=== PATIENT | female | born 1985 | race Caucasian/White ===

== ENCOUNTER 2018-05-20 17:26 | Inpatient (IN) | payer BC ==
[~2018-05-20] VITALS: Ht 165.1 cm; Wt 68.0 kg
--- NOTE | 2018-05-20 17:45 | NUR ---
PT TO FLOOR DIRECT ADMIT FOR DR AWAD. PT AMBULATED TO ROOM ON OWN. VS STABLE. CHANGED INTO GOWN. INTO BED. JULIÁN YAO, ATTATCHED TO SCDS. TONY IN ROOM TO ADMIT PT.
--- NOTE | 2018-05-20 20:09 | NUR ---
RECEIVED REPORT FROM DAY SHIFT RN. PATIENT RATES PAIN AT A 6/10. PATIENT GIVEN PRN TORADOL GIVEN PER ORDER. NO FURTHER NEEDS NOTED. CALL LIGHT IN REACH.
--- NOTE | 2018-05-20 21:04 | NUR ---
DR AWAD ORDERED A HEPATOBILARY W/CCK SCAN TO BE DONE IN THE AM. CONTACTED NUCLEAR MEDICINE, HE IS AWARE THE SCAN NEEDS TO BE DONE "FIRST THING IN THE AM". HAS A PLAN TO GET HER IN BEFORE 799. ADVISES NPO AT LEAST 6 HOURS PRIOR, WHICH PT IS, WELL AVOID MORPHINE AT LEAST 6 HOURS PRIOR. IS AWARE THAT PT CAN HAVE TORADOL FOR PAIN, AND STATES THAT IS ACCEPTABLE.
--- NOTE | 2018-05-20 21:50 | NUR ---
PATIENT ASSESMENT COMPLETED. PATIENT RATES PAIN AT A 4/10. PATIENT DENIES THE NEED FOR PAIN MEDICATION. PATIENT DENIES ANY NAUSEA. PATIENTS IS AT THE BEDSIDE. ALL QUESTIONS ANSWERED. NO FURTHER NEEDS NOTED. CALL LIGHT IN REACH.
--- NOTE | 2018-05-20 23:33 | NUR ---
PATIENT IS RESTING IN BED AND DENIES ANY NEEDS. NO NAUSE NOTED. PATIENT STATES PAIN IS TOLERABLE AT A 4/10. CALL LIGHT IN REACH.
--- NOTE | 2018-05-21 00:05 | NUR ---
PATIENT IS RESTING IN BED WITH EYES CLOSED, RR 18. PATIENT IS NOW NPO. CALL LIGHT IN REACH.
--- NOTE | 2018-05-21 02:41 | NUR ---
0200 MEDICATIONS GIVEN PER ORDER. PATIENT RATES PAIN AT A 2/10. PATIENT DENIES THE NEED FOR PAIN MEDICATION AT THIS TIME. PATIENT DENIES ANY NAUSEA. DOT ETCHER APPRENTICE IN ROOM AND TAKING VITALS. NO NEEDS NOTED. CALL LIGHT IN REACH.
--- NOTE | 2018-05-21 04:58 | NUR ---
PATIENTS IV WAS BEEPING. PATIENT DENIES ANY PAIN OR NAUSEA AT THIS TIME. IV INFUSING. PATIENTS CALL LIGHT IS WITHIN REACH.
--- NOTE | 2018-05-21 05:08 | NUR ---
PATIENT RESTED WELL THROUGHOUT THE SHIFT. PATIENT IS NPO AT THIS TIME. PATIENT IS INDEPENDENT IN THE ROOM. PATIENT RECEIVED X1 PRN TORADOL FOR ABD PAIN. PATIENT DENIED NAUSEA. PATIENT HAS SCDS IN PLACE.
--- NOTE | 2018-05-21 06:33 | NUR ---
PATIENT GIVEN PRN PAIN MEDICATION PER ORDER FOR 4/10 RUQ PAIN. PATIENT DENIES ANY NAUSEA. PATIENT IS UP AMBULATIING IN THE ROOM. NO FURTHER NEEDS NOTED.
--- NOTE | 2018-05-21 07:20 | NUR ---
PT SL AND TRANSPORTED TO IMAGING FOR HIDA SCAN.
--- NOTE | 2018-05-21 07:41 | NUR ---
PATIENT OFF FLOOR AT THIS TIME FOR PROCEDURE. ROOM CLEANED AND LINENS CHANGED AND READJUSTED NEEDED.
--- NOTE | 2018-05-21 09:21 | NUR ---
PATIENT BACK ON FLOOR. PATIENT WALKING INDEPENDENTLY IN ROOM. PATIENT REQUESTING WATER, LEMON GLYCERIN SWABS OFFERED TO PATIENT. WARM BLANKETS PROVIDED FOR FAMILY AND PATIENT. CALL LIGHT IN REACH. NO OTHER NEEDS AT THIS TIME.
--- NOTE | 2018-05-21 09:30 | NUR ---
PT RETURNED FROM IMAGING. IV RESTARTED. PT REPORTS MILD EPIGASTRIC PAIN BUT DENIES NEED FOR PAIN MEDICATION AT THIS TIME. DENIES NAUSEA OR OTHER CONCERNS. AT BEDSIDE. CALL LIGHT WITHIN REACH.
--- NOTE | 2018-05-21 09:37 | HP ---
[facility] [address] [place], [place] [address] Signed ADMISSION DATE: 05/20/2018 REASON FOR ADMISSION: Severe epigastric pain, dehydration. HISTORY OF PRESENT ILLNESS: This 32-year-old white woman has had several days of increasing epigastric pain boring through into the back. This pain has been severe and unrelenting. She is unable to eat. The pain is so severe. She has been evaluated in the distant past for possible biliary disease including an ultrasound, uncertain if a CCK-HIDA test and has had evaluation elsewhere by racquet maker including upper endoscopy several years ago with no specific finding. There was a concern that she may have gastrointestinal bleeding in the past, though she has no such complaints now. She does not have dysphagia and has had no hematemesis or blood per rectum. She does have pain additionally in the subcostal area in the right side, but not as much as the epigastric area itself. She does feel some substernal pain which feels like "pressure." As mentioned previously, the pain is extremely disabling. The patient does have family history of biliary disease and rather significantly. Additionally, there is family history of Crohn's disease. SOCIAL HISTORY: She is . She is accompanied by her mother in the clinic visit today. 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 She has three children at home. Her primary physician is Dr. Delgado. REVIEW OF SYSTEMS: She denies any shortness of breath. She does not have dyspnea or any trouble breathing in any other way. She denies hemoptysis or hematemesis. She had no dysuria or hematuria. Denies urinary frequency. Has no low back pain. PHYSICAL EXAMINATION: GENERAL: A pleasant, healthy-appearing white woman, who looks to be in moderate discomfort. Mucous membranes are slightly dry. Trachea is midline. CHEST: Clear. HEART: Regular without murmur. Electronically Signed By: VILLA AWAD MD 05/21/18 0937 PATIENT NAME: BRITTNEY CABRALES HISTORY AND PHYSICAL DATE OF : [birth year] REPORT #: [id number] PHYSICIAN: VILLA AWAD MD PCP: ELIZABETH DELGADO MD REPORT IS CONFIDENTIAL AND NOT TO BE RELEASED WITHOUT AUTHORIZATION [facility] [address] [place], [place] [address] Signed NECK: Shows no thyromegaly or cervical adenopathy. Trachea is midline. ABDOMEN: Shows a scaphoid abdomen without sign of distention. Palpation reveals no abnormality except in the epigastric area where there was marked tenderness without rebound. She has no palpable mass. EXTREMITIES: No clubbing, cyanosis, or edema. ASSESSMENT: Due to the patient's inability to eat, her clinical dehydration and her persisting epigastric pain. She is admitted for further evaluation and care and workup. An ultrasound of the gallbladder was ordered for this evening and on the possibility this may represent a biliary source. She has been nothing by mouth including lipid since approximately 11 today. She has concerned, she may have peptic disease in a certainly consideration. She has been on PPI medication in the past, which was helpful to some abdominal pain she had in the past, but she discontinued it when it seemed not to be of any real benefit. She has been started on Pepcid intravenously administered during this hospitalization. If the gallbladder ultrasound proves to be without sign of stone or pathologic findings, and we would recommend upper endoscopy be performed tomorrow morning. If that is entirely normal, then a CCK-HIDA test may be appropriate. The source of her problem is uncertain, but it has been unresponsive to Gaviscon, indeed has been made worse by it. The possibility of an esophageal spasm or reflux related esophageal spasm is also a consideration. Much less likely would be rare causes of epigastric pain including hepatic abnormality. She shows no evidence of hypotension or anything to suggest a perforated viscus or visceral artery aneurysm or anything of that . We discussed all this in detail. MD MADELEINE Narayan/JOANL /[id number] Copies: Electronically Signed By: VILLA AWAD MD 05/21/18 0937 PATIENT NAME: BRITTNEY CABRALES HISTORY AND PHYSICAL DATE OF : [birth year] REPORT #: [id number] PHYSICIAN: VILLA AWAD MD PCP: ELIZABETH DELGADO MD REPORT IS CONFIDENTIAL AND NOT TO BE RELEASED WITHOUT AUTHORIZATION [facility] [address] [place] [place] [address] Signed ~ Electronically Signed By: VILLA AWAD MD 05/21/18 0937 PATIENT NAME: BRITTNEY CABRALES HISTORY AND PHYSICAL DATE OF : [birth year] REPORT #: [id number] PHYSICIAN: VILLA AWAD MD PCP: ELIZABETH DELGADO MD REPORT IS CONFIDENTIAL AND NOT TO BE RELEASED WITHOUT AUTHORIZATION
--- NOTE | 2018-05-21 10:01 | NUR ---
PATIENT SITTING ON EDGE OF BED, FAMILY AND VISITORS IN ROOM. PATIENT CALL LIGHT IN REACH. NO OTHER NEEDS AT THIS TIME.
--- NOTE | 2018-05-21 10:29 | NUR ---
MED REC COMPLETE
--- NOTE | 2018-05-21 11:13 | NUR ---
PT SITTING UP AT EDGE OF BED STATES "I'M GONNA GO FOR A LITTLE WALK SOON." AT BEDSIDE. CALL LIGHT WITHIN REACH.
--- NOTE | 2018-05-21 12:30 | NUR ---
PT AMB INDEPENDENTLY TO [facility]. TRANSPORTED TO DAY SURGERY FOR EGD.
--- NOTE | 2018-05-21 13:29 | NUR ---
05/21/18 1329 Leeanna Pugh 1320 PT ARRIVED TO PACU DROWSY, BUT DENIES PAIN AND NAUSEA. RESP EVEN AND UNLABORED. O2 DECREASED FOR 6 TO 4 L VIA NC. O2 SAT 100%.
--- NOTE | 2018-05-21 14:22 | NUR ---
PT TO FLOOR VIA STRETCHER WITH MARQUIS BECK. PT ABLE TO AMBULATE TO BED ON OWN. DENIES PAIN OR DISCOMFORT, JUST TIRED. FINISHING IVF FROM SURGERY. IN ROOM. PT ASKED ABOUT GOING HOME TONIGHT OR STAYING. TOLD WE WOULD WAIT AND SEE HOW SHE FELT AND THEN CALL THE DR TO REASSESS IF NEEDED.
--- NOTE | 2018-05-21 14:30 | NUR ---
PT RETURNED FROM EGD. DENIES PAIN OR NAUSEA, STATES "I'M JUST TIRED". RESTING IN BED. MAINTENENCE FLUIDS RUNNING WNL. CALL LIGHT WITHIN REACH. AT BEDSIDE.
--- NOTE | 2018-05-21 14:31 | NUR ---
PT HAD NOT YET RETURNED FROM EGD. PT'S RODRIGO WAS IN RM. GAVE ME AN UPDATE-GOOD NEWS IN HIS WORDS. STOMACH ULCERS CAUSING PAIN, NOT GALL BLADDER. MEDICATION DR AWAD FELT WILL BE ABLE TO HELP, NOT REQUIRING SURGERY. HE SEEMED VERY RELIEVED. THANKED ME FOR STOPPING, AND MENTIONED THAT THIS IS FIRST TIME HERE AND IS PLEASED WITH THE CARE THEY HAVE RECEIVED. EXTENDED A BLESSING, WILL FOLLOW NEEDED
--- NOTE | 2018-05-21 15:10 | NUR ---
PT ADVANCED TO FULL LIQUID, TAKING SMALL SIPS OF CLEARS AT THIS TIME. REPORTS SLIGHT INCREASE IN PAIN WITH TAKING LIQUIDS, DR. AWAD AWARE. PT DENIES NAUSEA. PT INDEPENDENT IN ROOM. AT BEDSIDE.
--- NOTE | 2018-05-21 16:18 | NUR ---
PATIENT SITTING UP IN BED WITH CALL LIGHT IN REACH. FAMILY IN ROOM. NO OTHER NEEDS AT THIS TIME.
--- NOTE | 2018-05-21 18:16 | NUR ---
PT SHOWERED INDEPENDENTLY.
--- NOTE | 2018-05-21 18:35 | NUR ---
PT STILL ONLY TAKING SIPS OF CLEARS. STATES SHE IS HAVING SOME DISCOMFORT AND WANTS TO "TAKE IT EASY" TONIGHT. IV IFUSING WNL. CALL LIGHT WITHIN REACH.
--- NOTE | 2018-05-21 19:10 | NUR ---
SHIFT REPORT RECEIVED. PATIENT RESTING IN BED USING HER TABLET. DENIES PAIN AT THIS TIME. CALL LIGHT IN REACH.
--- NOTE | 2018-05-21 19:15 | NUR ---
ROUNDED CHARGE. PATIENT IS RESTING IN BED. NO COMMENTS, QUESTIONS, OR CONCERNS, AT THIS TIME. CALL LIGHT IN REACH.
--- NOTE | 2018-05-21 20:30 | NUR ---
CARAFATE GIVEN PER ORDER. PATIENT HAS NOT HAD ANYTHING TO EAT OR DRINK FOR ESTIMATED 2 HOURS. EDUCATION ON THIS MED GIVEN. PATIENT DENIES NAUSEA. PAIN TOLERABLE 5/10 DENIES NEED FOR COMFORT MEASURES AT THIS TIME. IV FLUIDS INFUSING PER ORDER, IV SITE WNL. ABD IS SOFT, TENDER IN UPPER QUADRANTS, BOWEL SOUNDS ACTIVE. PATIENT REPORTS PAIN INCREASED WHEN SHE TRIED APPLE JUICE FOR DINNER BUT FEELS THAT EATING OR DRINKING ANYTHING MAKES HER UNCOMFORTABLE. URINE OUTPUT QS. SCDS IN USE. NO OTHER NEEDS AT THIS TIME.
--- NOTE | 2018-05-21 21:30 | NUR ---
REMAINER OF EVENING MEDS GIVEN PER ORDER. PATIENT REQUEST IV TYLENOL WHICH WAS PROVIDED FOR 6/10 PAIN IN UPPER ABD. HEAT PACK REQUESTED AND PROVIDED. PATIENT DENIES FURTHER NEEDS AT THIS TIME.
--- NOTE | 2018-05-21 21:56 | NUR ---
VITALS AND I&OS DONE AND CHARTED. BEDSIDE TABLE AND CALL LIGHT WITHIN REACH. PT NEEDS NOTHING ELSE AT THIS TIME.
--- NOTE | 2018-05-21 23:30 | NUR ---
PATIENT REPORTS PAIN RELIEF. 01/11 IN ABD FROM 04/13. SHE HAS BEEN RESTING WELL AND ATTEMPTING TO SLEEP AT THIS TIME. IV FLUIDS INFUSING PER ORDER. HEAT PACK PROVIDING RELIEF. CALL LIGHT IN REACH.
--- NOTE | 2018-05-22 02:00 | NUR ---
PATIENT APPEARS TO BE SLEEPING SOUNDLY. IV FLUIDS INFUSING PER ORDER, SITE WNL. SCDS IN USE. CALL LIGHT IN REACH.
--- NOTE | 2018-05-22 02:30 | NUR ---
PATIENT WOKE WHEN RN ENTERED THE ROOM DUE TO IV ALARM. PATIENT DENIES PAIN AT THIS TIME. IV RESTARTED, SITE WNL. NO NEEDS AT THIS TIME.
--- NOTE | 2018-05-22 06:11 | NUR ---
VITALS AND I&OS DONE AND CHARTED. BEDSIDE TABLE AND CALL LIGHT WITHIN REACH. FRESH WATER GIVEN. GARBAGES EMPTIED.
--- NOTE | 2018-05-22 06:40 | OR ---
[facility] [address] [place], [place] [address] Signed DATE OF OPERATION: 05/21/2018 SURGEON: Villa Awad MD PREOPERATIVE DIAGNOSIS: Persistent epigastric pain with negative biliary workup. POSTOPERATIVE DIAGNOSIS: Prepyloric ulcers x2. PROCEDURE: Esophagogastroduodenoscopy with biopsy. ANESTHESIA: Intravenous sedation, fentanyl 100 mcg, Versed 5 mg. INDICATION: A 32-year-old white woman is a patient of Dr. Elizabeth Delgado, who was admitted by me yesterday after walk-in evaluation in my office for severe epigastric and substernal pain and vague abdominal bloating symptoms. Her symptoms have been so severe over the past few days. She has been unable to eat and she was dehydrated. She has been admitted to the hospital as a possible diagnosis of cholecystitis or even pancreatitis as the pain appeared to penetrate from her epigastric area into the back. Her amylase and lipase were normal. Liver enzymes were normal. Gallbladder ultrasound performed showed microlithiasis, but no sign of biliary disease otherwise. A CCK HIDA test was performed this morning showing a 91% ejection fraction, which was normal. She has been treated empirically with Pepcid intravenously at admission as well as antibiotics Ancef. She is now to undergo upper endoscopy to better characterize the source of her problem. Of note, she has undergone upper endoscopy in the past. She was recently seen in the emergency room in [place] and considered to have anxiety as the root cause of her problems. I think this to be unlikely and on that basis, upper endoscopy was performed at this time. FINDINGS: Two prepyloric ulcers were noted. One was relatively small and linear. The other was more rounded and had a white base, but was definitely significant and in the prepyloric Electronically Signed By: VILLA AWAD MD 05/22/18 0640 PATIENT NAME: BRITTNEY CABRALES OPERATIVE REPORT DATE OF : 83 REPORT #: [id number] PHYSICIAN: VILLA AWAD MD PCP: ELIZABETH DELGADO MD REPORT IS CONFIDENTIAL AND NOT TO BE RELEASED WITHOUT AUTHORIZATION [facility] [address] [place], [place] [address] Signed area. CLOtest was negative showing no evidence of H pylori. The flap valve was good as was the esophagus. The duodenum was normal as well. DESCRIPTION OF PROCEDURE: The patient was brought to the endoscopy suite and given topical Hurricaine spray hypopharyngeal anesthesia and placed in lateral decubitus position. She was given intravenous sedation to the point of slurred speech and nystagmus with full cardiopulmonary monitoring. A bite block was placed. The Olympus video upper endoscope was passed in the hypopharynx. The vocal cords visualized and found to be normal. The scope was advanced to the esophagus throughout its length, it was entirely normal. The scope was passed in the stomach, which was insufflated with air. There was no sign of bile within the stomach. Rugal folds were normal. Scope was advanced to the prepyloric area where an obvious relatively large prepyloric ulcer was noted with a aguilar white base. The pylorus was not deformed or obstructed. The scope was passed through the pylorus into the duodenum. The bulbar 2nd and 3rd portions appeared reasonably normal. Biopsies were obtained nevertheless. The scope was withdrawn to the bulb, showing no bulbar ulcer. Withdrawal of scope to the stomach once again confirmed the prepyloric ulcer, which was probably 2 cm in size. Across from it was a smaller linear ulcer, thus making the ulcer configuration a "kissing ulcer." Biopsies were taken of the antrum for both JOO and pathologic testing and biopsy of the larger ulcer base taken as well. Retroflexed view was undertaken showing a normal flap valve. More proximal stomach was normal. Scope was straightened withdrawn to the distal esophagus, which was normal. Biopsies were obtained there as well, though it is quite unlikely there would be any pathologic finding there. Careful withdrawal of scope showed no evidence of abnormality of the esophagus more proximally. The patient was taken to recovery room in good condition. CONCLUDING DIAGNOSIS: Symptoms entirely related to prepyloric ulceration x2. PLAN: We will initiate Carafate therapy as well as PPI medication. CLOtest is thus far negative. We will not initiate H pylori therapy without evidence of that. MD MADELEINE Narayan/MODL Electronically Signed By: VILLA AWAD MD 05/22/18 0640 PATIENT NAME: BRITTNEY CABRALES OPERATIVE REPORT DATE OF : [birth year] REPORT #: [id number] PHYSICIAN: VILLA AWAD MD PCP: ELIZABETH DELGADO MD REPORT IS CONFIDENTIAL AND NOT TO BE RELEASED WITHOUT AUTHORIZATION [facility] [address] [place], [place] [address] Signed /[id number] cc: Elizabeth Delgado MD Copies: ELIZABETH DELGADO MD ~ Electronically Signed By: VILLA AWAD MD 05/22/18 0640 PATIENT NAME: BRITTNEY CABRALES OPERATIVE REPORT DATE OF : [birth year] REPORT #: [id number] PHYSICIAN: VILLA AWAD MD PCP: ELIZABETH DELGADO MD REPORT IS CONFIDENTIAL AND NOT TO BE RELEASED WITHOUT AUTHORIZATION
--- NOTE | 2018-05-22 06:42 | NUR ---
PATIENT SLEPT ON AND OFF THROUGHOUT THE NIGHT. MINIMAL PAIN, CONTROLLED BY IV TYLENOL ONCE. TOLERATING CLEARS, ADVANCED TO FULL. NO NAUSEA. IV FLUIDS PER ORDER. INDEPENDENT IN THE ROOM. SCDS AT NIGHT. EAGER TO LEARN ABOUT MEDS, DIET, AND DISCHARGE INSTRUCTIONS RELEVANT TO ULCERS.
[2018-05-22] MEDS ORDERED: ONDANSETRON4 MG/2 M1 IV (06:45)
--- NOTE | 2018-05-22 06:45 | NUR ---
MORNING CARAFATE PROVIDED. PATIENT REPORTS SLEEPING WELL. NO PAIN AT THIS TIME. IV FLUIDS PER ORDER. MD IN ROOM TO DISCUSS DC.
[2018-05-22] MEDS ORDERED: PANTOPRAZOLE SO40 MG PO (06:46)
[2018-05-22] MEDS ORDERED: CARAFATE1 GM PO (06:47)
[2018-05-22] MEDS ORDERED: ONDANSETRON4 MG/2 M1 PO (06:56)
--- NOTE | 2018-05-22 08:00 | NUR ---
RECEIVED REPORT AT 0700, FOUND PT AWAKE IN BED. PT DENIED PAIN AND N/V AT THAT TIME.
[2018-05-22] MEDS ORDERED: PROTONIX40 MG PO ×2 (08:53→08:56)
--- NOTE | 2018-05-22 09:38 | NUR ---
Pharmacy is currently doing medication discharge teaching. pt is sitting up in bed with call light in reach, morning/discharge vitals done.
--- NOTE | 2018-05-22 14:33 | DS ---
[facility] [address] [place] [place] [address] Signed ADMISSION DATE: 05/20/2018 DISCHARGE DATE: 05/22/2018 REASON FOR ADMISSION: This 32-year-old white woman who has had several days of increasing epigastric pain boring straight into the posterior thorax. The pain has been severe and unrelenting. She is unable to eat, the pain is so severe. She has been evaluated in the distant past for possible biliary disease including ultrasound and peobalbe CCK-HIDA test and evaluation by mica laminating machine feeder with upper endoscopy several years ago with no specific findings. Several months ago, she was seen in [place] [facility] where she was said to have similar but lesser pain which was considered related to "stress." She has no associated dysphagia, hematemesis, or blood per rectum. She is somewhat dehydrated clinically and is admitted for further evaluation and treatment directly from my office. PERTINENT PHYSICAL EXAMINATION: GENERAL: A pleasant, healthy-appearing white woman who looked to be in moderate discomfort. HEENT: Mucous membranes are dry. Trachea is midline. CHEST: Clear. HEART: Regular without murmur. ABDOMEN: Scaphoid without sign of distention. Palpation reveals no abnormality, except in the epigastric area. There is marked tenderness without rebound. There is no palpable mass. HOSPITAL COURSE: She was admitted and given intravenous fluids and antibiotic Ancef on the possibility, this may represent acute cholecystitis. Pepcid was administered as well. A gallbladder ultrasound was performed, which showed "microlithiasis," otherwise normal, certainly no thickening of the gallbladder wall. LABORATORY DATA: Admission lab studies showed a normal white count and hematocrit and platelet count and liver enzymes were normal and amylase and lipase were normal as well. Beta-hCG was negative. A plan was made for the following morning for upper endoscopy to be followed by CCK-HIDA Electronically Signed By: VILLA AWAD MD 05/22/18 1433 PATIENT NAME: BRITTNEY CABRALES DISCHARGE SUMMARY DATE OF : [birth year] REPORT #: [id number] PHYSICIAN: VILLA AWAD MD PCP: ELIZABETH DELGADO MD REPORT IS CONFIDENTIAL AND NOT TO BE RELEASED WITHOUT AUTHORIZATION [facility] [address] [place], [place] [address] Signed test. Due to logistical reasons, a CCK-HIDA test was undertaken 1st thing in the morning, which showed a 91% ejection fraction with no specific reproduction of her symptoms particularly. The upper endoscopy followed thereafter, which identified two pre-pyloric ulcers, one at least a centimeter in size possibly greater and the other linear and smaller though they were in the prepyloric area and would be considered "kissing ulcers." Carafate was initiated as was oral Protonix. The patient had significant improvement and by the day of discharge is tolerating oral intake at this point, though she notes certain foods are more problematic including apple juice. It is our intention that she take Protonix on a b.i.d. basis for a week, changing then to daily and additionally take Carafate 1 g p.o. q.i.d. on an empty stomach. We will see her back in a few weeks and ultimately repeat upper endoscopy would be appropriate to assess for complete healing. Her diet will be as tolerated. If she has problems in the meantime, she will let me know. DISCHARGE MEDICATIONS: 1. Pantoprazole (Protonix) 40 mg one tablet p.o. b.i.d. for 1 week and then daily going forward. 2. Sucralfate 1 g p.o. q.i.d. on empty stomach, can dissolve in water if preferred as a liquid formulation. 3. Zofran 4 mg tablet one p.o. q.6 hours as needed for nausea (unlikely). DISCHARGE DIAGNOSES: 1. Severe epigastric pain persistent with resultant inability to eat and dehydration. 2. Biliary workup with ultrasound and CCK-HIDA test negative. 3. Pre-pyloric ulcers of stomach without associated H. pylori. MD MADELEINE Narayan/MODL /[id number] Electronically Signed By: VILLA AWAD MD 05/22/18 1433 PATIENT NAME: BRITTNEY CABRALES DISCHARGE SUMMARY DATE OF : [birth year] REPORT #: [id number] PHYSICIAN: VILLA AWAD MD PCP: ELIZABETH DELGADO MD REPORT IS CONFIDENTIAL AND NOT TO BE RELEASED WITHOUT AUTHORIZATION [facility] [address] [place] [address] Signed cc: Dr. Delgado Copies: ~ Electronically Signed By: VILLA AWAD MD 05/22/18 1433 PATIENT NAME: BRITTNEY CABRALES DISCHARGE SUMMARY DATE OF : [birth year] REPORT #: [id number] PHYSICIAN: VILLA AWAD MD PCP: ELIZABETH DELGADO MD REPORT IS CONFIDENTIAL AND NOT TO BE RELEASED WITHOUT AUTHORIZATION
== END 2018-05-22 10:08 | disposition home or self-care (01) | DRG 384 ==
LOC: MS 17:26
PROVIDERS: ADMIT Surgery
PROC: 0DB78ZX Excision of Stomach, Pylorus, Via Natural or Artificial Opening Endoscopic, Diagnostic (ICD-10-PCS; 2018-05-21)
PROC: 0DB38ZX Excision of Lower Esophagus, Via Natural or Artificial Opening Endoscopic, Diagnostic (ICD-10-PCS; 2018-05-21)
PROC: 0DB98ZX Excision of Duodenum, Via Natural or Artificial Opening Endoscopic, Diagnostic (ICD-10-PCS; principal; 2018-05-21 07:30)
DX: K25.9 Gastric ulcer, unspecified as acute or chronic, without hemorrhage or perforation (principal); E86.0 Dehydration; Z83.79 Family history of other diseases of the digestive system
CPT/HCPCS: 76705; 78227; 80053; 82150; 84703; 85025; 99153; A9537; G0500; J0131; J0690; J1644; J1885; J2250; J2405; J2805; J3010; J7120